=== PATIENT | female | born 1940 | race Caucasian/White ===

== ENCOUNTER 2018-06-13 14:43 | Inpatient (IN) ==
[2018-06-13] MEDS ORDERED: ACETAMINOPHEN 325 MG TABLET PO PRN (15:09)
[2018-06-13] MEDS ORDERED: MAGNESIUM HYDROXIDE SUSP 30 ML UDCUP PO PRN (15:09)
[2018-06-13] MEDS ORDERED: ONDANSETRON 4 MG/2 ML VIAL IV PRN (15:09)
[2018-06-13 16:40] LABS: Basophils # 0.1 10*3/uL (0.0-0.2); Basophils % 0.7 % (0.0-0.8); Eosinophils # 0.2 10*3/uL (0.0-0.87); Eosinophils % 1.7 % (0.00-10.9); Hematocrit 41.7 VOL% (35.7-47.0); Hemoglobin 13.6 GM/DL (12.0-16.0); Immature Granulocytes % 0.5 %; Immature Granulocytes Absolute 0.06 #; Lymphocytes % 8.2 % (21.3-54.2); Mean Corpuscular HGB Conc 32.6 GM/DL (32-36); Mean Corpuscular Hemoglobin 31 PG (27-34); Mean Platelet Volume 9.6 FL (9.6-12.0); Monocytes # 0.7 10*3/uL (0.11-0.8); Monocytes % 5.3 % (1.7-12.7); Neutrophils # 10.6 10*3/uL (1.4-7.4); Neutrophils % 83.6 % (38.7-73.9); Platelet Count 352 T/CUMM (130-400); Red Blood Count 4.39 MC/CUMM (3.8-5.5); Red Cell Distribution Width 12.4 % (9.3-17.3); White Blood Count 12.7 T/CUMM (4-12)
[2018-06-13 17:02] LABS: Alanine Aminotransferase 18 U/L (13-56); Albumin 3.7 G/DL (3.4-5.0); Alkaline Phosphatase 100 U/L (45-117); Aspartate Amino Transferase 21 U/L (0-37); Bilirubin,Total < 0.39 MG/DL (0.2-1.0); Blood Urea Nitrogen 17 MG/DL (7-18); Calcium 8.9 MG/DL (8.5-10.1); Glucose 81 MG/DL (74-106); Osmolality,Calculated 275.7 MOS/KG (273-304); Sodium 138 MMOL/L (136-145); Total Protein 8.9 G/DL (6.4-8.3)
[2018-06-13] MEDS: SODIUM CHLORIDE 0.45% 1,000 ML IV SCH (17:13)
[2018-06-13] MEDS: BECLOMETHASONE 40 MCG/PUFF INHALER 8.7 GM INH SCH (21:00)
[2018-06-13 21:19] LABS: Apearance,Urine CLEAR (Clear); Bilirubin,Urine Negative (Negative); Blood, Urine Moderate mg/dL (Negative); Glucose,Urine (UA) Negative (Negative); Ketones,Urine Negative (Negative); Nitrite,Urine Negative (Negative); Protein,Urine Negative; RBC,Urine 2 /HPF (0-4); Urine Color Straw (Yellow); Urine Specific Gravity 1.005 (1.001-1.035); Urine Urobilinogen < 2.0 EU/DL (0.2-1.0); WBC,Urine 1 /HPF (0-6)
[2018-06-14] MEDS: SODIUM CHLORIDE 0.45% 1,000 ML IV SCH ×4 (01:04→22:15)
[2018-06-14 04:52] LABS: Basophils # 0.1 10*3/uL (0.0-0.2); Basophils % 0.6 % (0.0-0.8); Eosinophils # 0.3 10*3/uL (0.0-0.87); Eosinophils % 2.6 % (0.00-10.9); Hematocrit 36.2 VOL% (35.7-47.0); Immature Granulocytes % 0.3 %; Immature Granulocytes Absolute 0.03 #; Lymphocytes % 9.5 % (21.3-54.2); Mean Corpuscular HGB Conc 33.1 GM/DL (32-36); Mean Corpuscular Hemoglobin 31 PG (27-34); Mean Corpuscular Volume 93.5 FL (87-102); Mean Platelet Volume 9.9 FL (9.6-12.0); Monocytes # 0.9 10*3/uL (0.11-0.8); Neutrophils # 8.1 10*3/uL (1.4-7.4); Platelet Count 310 T/CUMM (130-400); Red Blood Count 3.87 MC/CUMM (3.8-5.5); Red Cell Distribution Width 12.3 % (9.3-17.3); White Blood Count 10.4 T/CUMM (4-12)
[2018-06-14 05:36] LABS: Calcium 8.3 MG/DL (8.5-10.1); Osmolality,Calculated 277.4 MOS/KG (273-304); Potassium 4.2 MMOL/L (3.5-5.1); Risk Ratio 2.74; VLDL CHOLESTEROL 13.2 MG/DL
[2018-06-14] MEDS ORDERED: PROMETHAZINE 25 MG/1 ML VIAL IM ONE (07:00)
[2018-06-14] MEDS ORDERED: LIDOCAINE 1% 20 ML VIAL MISC INJ ONE (07:30)
[2018-06-14] MEDS ORDERED: MIDAZOLAM 2 MG/2 ML VIAL IV ONE (07:30)
[2018-06-14] MEDS ORDERED: LIDOCAINE 2% 20 ML VIAL RESP TX ONE (07:30)
[2018-06-14] MEDS ORDERED: MIDAZOLAM 2 MG/2 ML VIAL ONE (07:36)
[2018-06-14] MEDS: ALBUTEROL/IPRATROPIUM 3 ML NEB RESP TX SCH ×6 (08:00→22:40)
[2018-06-14] MEDS: SULFAMETHOX/TRIMETHOPRIM 400-80 MG TABLET PO SCH ×2 (10:01→22:17)
[2018-06-14] MEDS: PANTOPRAZOLE 40 MG TABLET PO SCH (10:02)
[2018-06-14] MEDS: CEFEPIME 1,000 MG in SYRINGE 1 EACH IV SCH ×2 (10:02→22:17)
[2018-06-14] MEDS: BECLOMETHASONE 40 MCG/PUFF INHALER 8.7 GM INH SCH ×2 (10:09→22:17)
[2018-06-14] MEDS: AMIKACIN IV SCH (14:31)
[2018-06-14] MEDS: SODIUM CHLORIDE 0.9% IV SCH (14:31)
[2018-06-15] MEDS: ALBUTEROL/IPRATROPIUM 3 ML NEB RESP TX SCH ×6 (02:39→23:53)
[2018-06-15] MEDS: SODIUM CHLORIDE 0.45% 1,000 ML IV SCH ×2 (06:22→06:41)
[2018-06-15] MEDS: CYANOCOBALAMIN 500 MCG TABLET PO SCH (09:27)
[2018-06-15] MEDS: MULTIVITAMIN (CENTRUM) TABLET PO SCH (09:27)
[2018-06-15] MEDS: CEFEPIME 1,000 MG in SYRINGE 1 EACH IV SCH ×2 (09:27→20:59)
[2018-06-15] MEDS: CALCIUM (CARBONATE) 500 MG TABLET PO SCH (09:28)
[2018-06-15] MEDS: SULFAMETHOX/TRIMETHOPRIM 400-80 MG TABLET PO SCH ×2 (09:28→20:59)
[2018-06-15] MEDS: PANTOPRAZOLE 40 MG TABLET PO SCH (09:28)
[2018-06-15] MEDS: BECLOMETHASONE 40 MCG/PUFF INHALER 8.7 GM INH SCH ×2 (09:28→21:00)
[2018-06-15] MEDS: VITAMIN E 400 UNIT CAPSULE PO SCH (09:31)
[2018-06-15] MEDS: SODIUM CHLORIDE 0.9% IV SCH (15:55)
[2018-06-15] MEDS: AMIKACIN IV SCH (15:55)
[2018-06-16] MEDS: ALBUTEROL/IPRATROPIUM 3 ML NEB RESP TX SCH ×5 (02:57→20:23)
[2018-06-16 06:09] LABS: Basophils # 0.1 10*3/uL (0.0-0.2); Basophils % 0.6 % (0.0-0.8); Eosinophils # 0.3 10*3/uL (0.0-0.87); Eosinophils % 2.4 % (0.00-10.9); Hematocrit 37.1 VOL% (35.7-47.0); Hemoglobin 12.5 GM/DL (12.0-16.0); Immature Granulocytes % 0.5 %; Immature Granulocytes Absolute 0.05 #; Lymphocytes # 0.8 10*3/uL (1.4-4.0); Lymphocytes % 6.8 % (21.3-54.2); Mean Corpuscular HGB Conc 33.7 GM/DL (32-36); Mean Corpuscular Hemoglobin 31 PG (27-34); Mean Corpuscular Volume 92.5 FL (87-102); Mean Platelet Volume 9.8 FL (9.6-12.0); Monocytes # 0.9 10*3/uL (0.11-0.8); Monocytes % 8.4 % (1.7-12.7); Neutrophils % 81.3 % (38.7-73.9); Platelet Count 300 T/CUMM (130-400); Red Blood Count 4.01 MC/CUMM (3.8-5.5); Red Cell Distribution Width 12.6 % (9.3-17.3); White Blood Count 11.1 T/CUMM (4-12)
[2018-06-16 06:46] LABS: Calcium 8.9 MG/DL (8.5-10.1); Osmolality,Calculated 278.4 MOS/KG (273-304); Potassium 4.1 MMOL/L (3.5-5.1)
[2018-06-16] MEDS: VITAMIN E 400 UNIT CAPSULE PO SCH (08:53)
[2018-06-16] MEDS: CYANOCOBALAMIN 500 MCG TABLET PO SCH (08:53)
[2018-06-16] MEDS: MULTIVITAMIN (CENTRUM) TABLET PO SCH (08:53)
[2018-06-16] MEDS: PANTOPRAZOLE 40 MG TABLET PO SCH (08:54)
[2018-06-16] MEDS: CALCIUM (CARBONATE) 500 MG TABLET PO SCH (08:54)
[2018-06-16] MEDS: SULFAMETHOX/TRIMETHOPRIM 400-80 MG TABLET PO SCH ×2 (08:54→21:08)
[2018-06-16] MEDS: CEFEPIME 1,000 MG in SYRINGE 1 EACH IV SCH ×2 (08:54→21:35)
[2018-06-16] MEDS: BECLOMETHASONE 40 MCG/PUFF INHALER 8.7 GM INH SCH ×2 (08:55→21:08)
[2018-06-16] MEDS: SODIUM CHLORIDE 0.9% IV SCH (15:30)
[2018-06-16] MEDS: AMIKACIN IV SCH (15:30)
[2018-06-17] MEDS: ALBUTEROL/IPRATROPIUM 3 ML NEB RESP TX SCH ×7 (00:18→23:22)
[2018-06-17 05:14] LABS: Basophils # 0.1 10*3/uL (0.0-0.2); Basophils % 0.9 % (0.0-0.8); Eosinophils # 0.4 10*3/uL (0.0-0.87); Eosinophils % 4.4 % (0.00-10.9); Hematocrit 36.1 VOL% (35.7-47.0); Hemoglobin 11.9 GM/DL (12.0-16.0); Immature Granulocytes % 0.4 %; Immature Granulocytes Absolute 0.03 #; Lymphocytes # 0.8 10*3/uL (1.4-4.0); Lymphocytes % 10.3 % (21.3-54.2); Mean Corpuscular Hemoglobin 31 PG (27-34); Mean Platelet Volume 9.7 FL (9.6-12.0); Monocytes # 0.9 10*3/uL (0.11-0.8); Monocytes % 11.9 % (1.7-12.7); Neutrophils # 5.7 10*3/uL (1.4-7.4); Neutrophils % 72.1 % (38.7-73.9); Platelet Count 286 T/CUMM (130-400); Red Cell Distribution Width 12.8 % (9.3-17.3); White Blood Count 7.9 T/CUMM (4-12)
[2018-06-17 05:25] LABS: Calcium 8.5 MG/DL (8.5-10.1); Osmolality,Calculated 277.5 MOS/KG (273-304); Potassium 4.2 MMOL/L (3.5-5.1)
[2018-06-17] MEDS: PANTOPRAZOLE 40 MG TABLET PO SCH (08:12)
[2018-06-17] MEDS: MULTIVITAMIN (CENTRUM) TABLET PO SCH (08:12)
[2018-06-17] MEDS: CYANOCOBALAMIN 500 MCG TABLET PO SCH (08:12)
[2018-06-17] MEDS: CALCIUM (CARBONATE) 500 MG TABLET PO SCH (08:12)
[2018-06-17] MEDS: SULFAMETHOX/TRIMETHOPRIM 400-80 MG TABLET PO SCH ×2 (08:12→21:27)
[2018-06-17] MEDS: BECLOMETHASONE 40 MCG/PUFF INHALER 8.7 GM INH SCH ×2 (08:13→21:28)
[2018-06-17] MEDS: VITAMIN E 400 UNIT CAPSULE PO SCH (08:13)
[2018-06-17] MEDS: CEFEPIME 1,000 MG in SYRINGE 1 EACH IV SCH ×2 (08:16→21:25)
[2018-06-17] MEDS: SODIUM CHLORIDE 0.9% IV SCH (15:59)
[2018-06-17] MEDS: AMIKACIN IV SCH (15:59)
[2018-06-18] MEDS: ALBUTEROL/IPRATROPIUM 3 ML NEB RESP TX SCH ×5 (03:23→20:08)
[2018-06-18] MEDS: CYANOCOBALAMIN 500 MCG TABLET PO SCH (08:46)
[2018-06-18] MEDS: PANTOPRAZOLE 40 MG TABLET PO SCH (08:46)
[2018-06-18] MEDS: CALCIUM (CARBONATE) 500 MG TABLET PO SCH (08:46)
[2018-06-18] MEDS: VITAMIN E 400 UNIT CAPSULE PO SCH (08:46)
[2018-06-18] MEDS: CEFEPIME 1,000 MG in SYRINGE 1 EACH IV SCH ×2 (08:46→21:49)
[2018-06-18] MEDS: SULFAMETHOX/TRIMETHOPRIM 400-80 MG TABLET PO SCH ×2 (08:46→21:05)
[2018-06-18] MEDS: MULTIVITAMIN (CENTRUM) TABLET PO SCH (08:46)
[2018-06-18] MEDS: BECLOMETHASONE 40 MCG/PUFF INHALER 8.7 GM INH SCH ×2 (08:47→21:06)
[2018-06-18] MEDS: SODIUM CHLORIDE 0.9% IV SCH (14:40)
[2018-06-18] MEDS: AMIKACIN IV SCH (14:40)
[2018-06-19] MEDS: ALBUTEROL/IPRATROPIUM 3 ML NEB RESP TX SCH ×7 (00:54→23:05)
[2018-06-19 05:53] LABS: Basophils # 0.1 10*3/uL (0.0-0.2); Basophils % 0.9 % (0.0-0.8); Eosinophils # 0.3 10*3/uL (0.0-0.87); Eosinophils % 4.9 % (0.00-10.9); Hematocrit 37.3 VOL% (35.7-47.0); Hemoglobin 12.3 GM/DL (12.0-16.0); Immature Granulocytes % 0.3 %; Immature Granulocytes Absolute 0.02 #; Lymphocytes # 0.8 10*3/uL (1.4-4.0); Lymphocytes % 11.4 % (21.3-54.2); Mean Corpuscular Hemoglobin 31 PG (27-34); Mean Corpuscular Volume 95.2 FL (87-102); Mean Platelet Volume 9.7 FL (9.6-12.0); Monocytes # 0.8 10*3/uL (0.11-0.8); Monocytes % 11.5 % (1.7-12.7); Neutrophils # 4.9 10*3/uL (1.4-7.4); Platelet Count 302 T/CUMM (130-400); Red Blood Count 3.92 MC/CUMM (3.8-5.5); Red Cell Distribution Width 12.7 % (9.3-17.3); White Blood Count 6.9 T/CUMM (4-12)
[2018-06-19] MEDS: MULTIVITAMIN (CENTRUM) TABLET PO SCH (10:02)
[2018-06-19] MEDS: CYANOCOBALAMIN 500 MCG TABLET PO SCH (10:02)
[2018-06-19] MEDS: SULFAMETHOX/TRIMETHOPRIM 400-80 MG TABLET PO SCH ×2 (10:03→21:58)
[2018-06-19] MEDS: VITAMIN E 400 UNIT CAPSULE PO SCH (10:03)
[2018-06-19] MEDS: CALCIUM (CARBONATE) 500 MG TABLET PO SCH (10:03)
[2018-06-19] MEDS: BECLOMETHASONE 40 MCG/PUFF INHALER 8.7 GM INH SCH ×2 (10:04→21:59)
[2018-06-19] MEDS: PANTOPRAZOLE 40 MG TABLET PO SCH (10:04)
[2018-06-19] MEDS: CEFEPIME 1,000 MG in SYRINGE 1 EACH IV SCH ×2 (10:10→21:59)
[2018-06-19 12:31] LABS: Calcium 9.6 MG/DL (8.5-10.1); Osmolality,Calculated 270.1 MOS/KG (273-304); Potassium 4.7 MMOL/L (3.5-5.1)
[2018-06-19] MEDS: AMIKACIN IV SCH (16:01)
[2018-06-19] MEDS: SODIUM CHLORIDE 0.9% IV SCH (16:01)
[2018-06-20] MEDS: ALBUTEROL/IPRATROPIUM 3 ML NEB RESP TX SCH ×6 (03:25→23:19)
[2018-06-20] MEDS ORDERED: SODIUM CHLORIDE 0.65% NASAL SPRAY 45 ML BOTTLE BOTH NARES PRN (08:00)
[2018-06-20] MEDS: MULTIVITAMIN (CENTRUM) TABLET PO SCH (10:15)
[2018-06-20] MEDS: CYANOCOBALAMIN 500 MCG TABLET PO SCH (10:15)
[2018-06-20] MEDS: VITAMIN E 400 UNIT CAPSULE PO SCH (10:15)
[2018-06-20] MEDS: CALCIUM (CARBONATE) 500 MG TABLET PO SCH (10:16)
[2018-06-20] MEDS: PANTOPRAZOLE 40 MG TABLET PO SCH (10:16)
[2018-06-20] MEDS: SULFAMETHOX/TRIMETHOPRIM 400-80 MG TABLET PO SCH ×2 (10:16→20:40)
[2018-06-20] MEDS: CEFEPIME 1,000 MG in SYRINGE 1 EACH IV SCH ×2 (10:19→20:41)
[2018-06-20] MEDS: BECLOMETHASONE 40 MCG/PUFF INHALER 8.7 GM INH SCH ×2 (10:23→20:41)
[2018-06-20] MEDS: SODIUM CHLORIDE 0.9% IV SCH (16:01)
[2018-06-20] MEDS: AMIKACIN IV SCH (16:01)
[2018-06-21] MEDS: ALBUTEROL/IPRATROPIUM 3 ML NEB RESP TX SCH ×3 (03:27→10:50)
[2018-06-21 07:37] VITALS: BP 135/61
[2018-06-21] MEDS ORDERED: MEGESTROL 400 MG/10 ML UDCUP PO SCH (09:00)
[2018-06-21] MEDS: SULFAMETHOX/TRIMETHOPRIM 400-80 MG TABLET PO SCH (09:55)
[2018-06-21] MEDS: CYANOCOBALAMIN 500 MCG TABLET PO SCH (09:55)
[2018-06-21] MEDS: CALCIUM (CARBONATE) 500 MG TABLET PO SCH (09:55)
[2018-06-21] MEDS: MULTIVITAMIN (CENTRUM) TABLET PO SCH (09:55)
[2018-06-21] MEDS: PANTOPRAZOLE 40 MG TABLET PO SCH (09:56)
[2018-06-21] MEDS: CEFEPIME 1,000 MG in SYRINGE 1 EACH IV SCH (10:00)
== END 2018-06-21 11:53 | disposition home or self-care (01) | DRG 167 ==
LOC: N.2W 15:43 → N.TELEN 16:55
PROVIDERS: ADMIT Family Medicine; ATTEND Family Medicine
PROC: BRONCHB (2018-06-14 07:50)